=== PATIENT | female | born 1995 | race African-American/Black ===

== ENCOUNTER 2018-04-10 22:26 | Inpatient (IN) | payer OTHER ==
[2018-04-10 23:22] LABS: ADD UMIC YES; UR ASCORBIC ACID NEGATIVE (NEGATIVE); UR BACTERIA FEW /HPF (NONE SEEN); UR BILIRUBIN (Dip) NEGATIVE (NEGATIVE); UR BLOOD (Dip) NEGATIVE (NEGATIVE); UR CLARITY SLIGHTLY CLOUDY (CLEAR); UR COLOR YELLOW (YELLOW); UR GLUCOSE (Dip) NEGATIVE (NEGATIVE); UR KETONES (Dip) NEGATIVE (NEGATIVE); UR LEUKOCYTE ESTERASE (Dip) 3+ Leu/ul (NEGATIVE); UR MUCUS MODERATE /HPF (NONE SEEN); UR NITRITE (Dip) NEGATIVE (NEGATIVE); UR RBC 3 /HPF (0-5); UR SPECIFIC GRAVITY (Dip) 1.027 (1.003-1.030); UR SQUAMOUS EPITHELIAL CELL MODERATE /HPF (FEW); UR TOTAL PROTEIN (Dip) 1+ mg/dl (NEGATIVE); UR UROBILINOGEN (Dip) 2+ mg/dL (NEGATIVE); UR WBC 6 /HPF (0-5)
[2018-04-10 23:39] LABS: AMPHETAMINE/METHAMPHETAMINE Negative (NEGATIVE); BARBITURATES Negative (NEGATIVE); BENZODIAZEPINES Negative (NEGATIVE); CANNABINOIDS Negative (NEGATIVE); COCAINE Negative (NEGATIVE); OPIATES Negative (NEGATIVE)
[2018-04-10 23:40] LABS: RUPTURE FETAL MEMBRANES NEGATIVE (NEGATIVE)
[2018-04-11] MEDS ORDERED: LACTATED RINGER'S 1,000 ML IV (01:49)
[2018-04-11] MEDS ORDERED: LIDOCAINE 1% (MPF) 30 ML INJ INJ (02:00)
[2018-04-11] MEDS ORDERED: CARBOPROST 250 MCG INJ IM (02:00)
[2018-04-11] MEDS ORDERED: OXYTOCIN 30 UNITS/LR 500 ML IV ×2 (02:00)
[2018-04-11] MEDS ORDERED: MISOPROSTOL 200 MCG TAB PR (02:00)
[2018-04-11] MEDS ORDERED: IBUPROFEN 600 MG TAB PO (02:00)
[2018-04-11] MEDS ORDERED: METHYLERGONOVINE 0.2 MG INJ IM (02:00)
[2018-04-11 02:47] LABS: ADD MAN DIFF? NO
[2018-04-11 02:51] LABS: WHITE BLOOD COUNT 9.4 10^3/ul (4.8-10.8)
[2018-04-11 02:51] LABS: BASOPHILS % 0.3 % (0.0-2.0); EOSINOPHILS # 0.2 10^3/ul (0.0-0.5); EOSINOPHILS % 2.1 % (0.0-7.0); HEMATOCRIT 27.9 % (37.0-47.0); HEMOGLOBIN 8.8 g/dl (12.0-16.0); LYMPHOCYTES # 2.5 10^3/ul (0.8-2.9); MEAN CORPUSCULAR HGB CONC 31.5 g/dl (32.0-37.0); MEAN CORPUSCULAR VOLUME 85.6 fl (82.0-101.0); MEAN PLATELET VOLUME 10.8 fl (7.4-10.4); MONOCYTE # 0.8 10^3/ul (0.3-0.9); MONOCYTES % 8.8 % (0.0-11.0); NEUTROPHIL # 5.9 10^3/ul (1.6-7.5); NEUTROPHILS % 62.3 % (39.0-77.0); PLATELET COUNT 317 10^3/UL (140-415); RED BLOOD COUNT 3.26 10^6/ul (4.20-5.40); RED CELL DISTRIBUTION WIDTH 13.9 % (11.5-14.5)
[2018-04-11 03:10] LABS: INR 0.92; PROTIME 12.4 Sec (11.9-14.9)
[2018-04-11 03:11] LABS: PARTIAL THROMBOPLASTIN TIME 31.4 Sec (23.0-35.0)
[2018-04-11 03:42] LABS: HEPATITIS B SURFACE ANTIGEN NEGATIVE (NEGATIVE)
[2018-04-11] MEDS: AMPICILLIN 2 GM/NS (PMX) 100 ML IV (04:00)
[2018-04-11] MEDS: LACTATED RINGER'S 1,000 ML IV ×4 (04:06→23:03)
[2018-04-11] MEDS: BUTORPHANOL 2 MG INJ IV (04:43)
[2018-04-11] MEDS: OXYTOCIN 30 UNITS/LR 500 ML IV (05:49)
[2018-04-11] MEDS: AMPICILLIN 1 GM/NS (PMX) 50 ML IV ×5 (08:53→23:03)
[2018-04-11] MEDS ORDERED: NALOXONE (0.4 MG/ML) INJ IV (12:30)
[2018-04-11 16:26] LABS: RAPID PLASMA REAGIN NONREACTIVE (NR)
[2018-04-11] MEDS: FENTAnyl 2MCG/ML-ROPIV 0.2% 100 ML BAG EPI (20:43)
[2018-04-12] MEDS: AMPICILLIN 1 GM/NS (PMX) 50 ML IV (02:56)
[2018-04-12] MEDS: FENTAnyl 2MCG/ML-ROPIV 0.2% 100 ML BAG EPI (04:08)
[2018-04-12] MEDS ORDERED: LIDOCAINE 1% (MPF) 30 ML INJ (05:27)
[2018-04-12] MEDS: OXYTOCIN 30 UNITS/LR 500 ML IV (05:56)
[2018-04-12] MEDS ORDERED: MISOPROSTOL 200 MCG TAB PR (10:30)
[2018-04-12] MEDS ORDERED: ACETAMINOPHEN 325 MG TAB PO (10:30)
[2018-04-12] MEDS ORDERED: CARBOPROST 250 MCG INJ IM (10:30)
[2018-04-12] MEDS ORDERED: DIBUCAINE 1% 30 GM OINT TOP (10:30)
[2018-04-12] MEDS ORDERED: BENZOCAINE 20% 56 ML SPRAY TOP (10:30)
[2018-04-12] MEDS ORDERED: LANOLIN 7 GM TUBE TOP (10:30)
[2018-04-12] MEDS ORDERED: OXYTOCIN 30 UNITS/LR 500 ML IV (10:30)
[2018-04-12] MEDS ORDERED: METHYLERGONOVINE 0.2 MG INJ IM (10:30)
[2018-04-12] MEDS: LACTATED RINGER'S 1,000 ML IV (10:53)
[2018-04-12] MEDS: IBUPROFEN 600 MG TAB PO ×2 (14:04→19:32)
[2018-04-12] MEDS: SENNA/DOCUSATE NA (8.6MG/50MG) TAB PO (22:57)
[2018-04-13] MEDS: IBUPROFEN 600 MG TAB PO ×4 (00:03→17:14)
[2018-04-13] MEDS: LACTATED RINGER'S 1,000 ML IV (01:49)
[2018-04-13] MEDS: LACTATED RINGER'S 1,000 ML IV* (02:29)
[2018-04-13 08:07] LABS: ADD MAN DIFF? NO
[2018-04-13 08:17] LABS: BASOPHIL # 0.1 10^3/ul (0.0-0.1); BASOPHILS % 0.4 % (0.0-2.0); EOSINOPHILS # 0.4 10^3/ul (0.0-0.5); EOSINOPHILS % 3.1 % (0.0-7.0); HEMATOCRIT 24.6 % (37.0-47.0); HEMOGLOBIN 7.5 g/dl (12.0-16.0); LYMPHOCYTES # 3.8 10^3/ul (0.8-2.9); LYMPHOCYTES % 30.5 % (15.0-51.0); MEAN CORPUSCULAR HEMOGLOBIN 26.7 pg (29.0-33.0); MEAN CORPUSCULAR HGB CONC 30.5 g/dl (32.0-37.0); MEAN CORPUSCULAR VOLUME 87.5 fl (82.0-101.0); MEAN PLATELET VOLUME 11.3 fl (7.4-10.4); MONOCYTES % 7.8 % (0.0-11.0); NEUTROPHIL # 7.2 10^3/ul (1.6-7.5); NEUTROPHILS % 57.4 % (39.0-77.0); PLATELET COUNT 244 10^3/UL (140-415); RED BLOOD COUNT 2.81 10^6/ul (4.20-5.40); RED CELL DISTRIBUTION WIDTH 14.3 % (11.5-14.5)
[2018-04-13 08:17] LABS: WHITE BLOOD COUNT 12.5 10^3/ul (4.8-10.8)
[2018-04-13] MEDS: SENNA/DOCUSATE NA (8.6MG/50MG) TAB PO ×2 (10:04→21:09)
[2018-04-13] MEDS: DOCUSATE SODIUM 100 MG CAP PO (21:10)
[2018-04-13] MEDS: HYDROCODONE/APAP (5/325) TAB PO (21:10)
[2018-04-13] MEDS: POLYSACCHARIDE IRON COMPLEX CAP PO (21:10)
[2018-04-13] MEDS: WITCH HAZEL/GLYCERIN PAD PR (21:13)
[2018-04-14] MEDS: IBUPROFEN 600 MG TAB PO ×3 (00:10→11:29)
[2018-04-14] MEDS: SENNA/DOCUSATE NA (8.6MG/50MG) TAB PO (09:00)
[2018-04-14] MEDS: DOCUSATE SODIUM 100 MG CAP PO (09:00)
[2018-04-14] MEDS: POLYSACCHARIDE IRON COMPLEX CAP PO (09:27)
[2018-04-14] MEDS: DIPHTH/TET/ACEL PERTUSS (ADULT) 0.5 ML VIAL IM* (09:29)
== END 2018-04-14 13:30 | disposition home or self-care (01) | DRG 807 ==
LOC: OBT 22:26 → PP1 04-12 09:10 → L-D 22:27 → PP1 04-12 20:43
PROC: 10E0XZZ Delivery of Products of Conception, External Approach (ICD-10-PCS; principal; 2018-04-12)
PROC: 0UQGXZZ Repair Vagina, External Approach (ICD-10-PCS; 2018-04-12)
DX: O71.4 Obstetric high vaginal laceration alone (principal); O90.81 Anemia of the puerperium; D64.9 Anemia, unspecified; Z3A.39 39 weeks gestation of pregnancy; Z37.0 Single live birth
CPT/HCPCS: 62319; 76815; 76818; 80307; 81001; 82962; 84112; 85025; 85610; 85730; 86592; 86850; 86900; 86901; 87340; 90715